=== PATIENT | female | born 1970 | race Caucasian/White ===

== ENCOUNTER 2019-01-23 15:14 | Emergency (ER) | payer OTHER ==
[2019-01-23 15:40] VITALS: RESP 18
[2019-01-23] MEDS ORDERED: KETOROLAC TROMETHAMINE 30 MG/ML SOL IV ONE (16:28)
[2019-01-23] MEDS ORDERED: SODIUM CHLORIDE 0.9% 1000ML 1,000 ML IV ONE (16:28)
[2019-01-23] MEDS ORDERED: KETOROLAC TROMETHAMINE 30 MG/ML SOL ONE (16:38)
[2019-01-23 16:52] LABS: BASOPHILS % (AUTO) 1 % (0-3); EOSINOPHILS % (AUTO) 2 % (0-9); HEMATOCRIT 37 % (35-47); LYMPHOCYTES % (AUTO) 38.4 % (10-50); MEAN CORPUSCULAR HEMOGLOBIN 30.8 pg (27.0-32.0); MEAN CORPUSCULAR HGB CONC 32.6 gm/dl (32.0-36.0); MEAN CORPUSCULAR VOLUME 94 fL (81-99); NEUTROPHILS % (AUTO) 50.5 % (37-80)
[2019-01-23 17:07] LABS: ALBUMIN 3.2 gm/dl (3.4-5.0); BILIRUBIN,TOTAL 0.5 mg/dl (0.2-1.0); CALCIUM 8.2 mg/dl (8.5-10.1); CARBON DIOXIDE 29.4 mEq/L (21-32); CREATININE 0.66 mg/dl (0.60-1.00); POTASSIUM 3.3 mMol/L (3.5-5.1); TOTAL PROTEIN 6.3 gm/dl (6.4-8.2)
[2019-01-23] MEDS ORDERED: POTASSIUM CHLORIDE 10 MEQ TER ONE (17:34)
[2019-01-23] MEDS ORDERED: POTASSIUM CHLORIDE 10 MEQ TER PO ONE (17:37)
[2019-01-23] MEDS ORDERED: POTASSIUM CHLORIDE 10 MEQ TER PO SCH (17:45)
[2019-01-23 18:09] VITALS: O2SAT 99
[2019-01-23 18:10] VITALS: BP 109/73; PULSE 76; TEMP 98.2
== END 2019-01-23 18:08 | disposition home or self-care (01) | DRG 948 ==
LOC: ED 15:14
DX: R60.9 Edema, unspecified (principal); S93.402A Sprain of unspecified ligament of left ankle, initial encounter; L56.8 Other specified acute skin changes due to ultraviolet radiation
CPT/HCPCS: 73610; 80053; 85025; 96365; 96374; 99283; 99284; J1885; A9270-GY